=== PATIENT | male | born 1945 | race Caucasian/White ===

== ENCOUNTER 2024-04-14 09:41 | Emergency (ER) | payer OTHER, SELFPAY ==
[2024-04-14 09:46] VITALS: BP 154/100
--- NOTE | 2024-04-14 10:38 | EDRN ---
Pt has wandered up to desk twice asking about how long wait is. Pt reassured and returned to WR.
[2024-04-14 11:29] LABS: % Basophils 0.5 % (0-2); % Eosinophils 0.3 % (0-6); % Immature Granulocytes 0.3 % (0-0.5); % Lymphocytes 20.3 % (20.5-51.1); % Neutrophils 70.6 % (42.2-75.2); Absolute Lymphocytes 1.2 10^3/uL (1.2-3.4); Absolute Monocytes 0.5 10^3/uL (0.1-0.6); Absolute Neutrophils 4.1 10^3/uL (1.4-6.5); Hemoglobin 15.8 g/dL (13.0-18.0); Mean Corp Hgb Conc. 35.9 g/dL (33.0-37.0); Mean Corpuscular Hgb 33.7 pg (27.0-31.0); Mean Corpuscular Volume 93.8 fL (80.0-94.0); Mean Platelet Volume 9.3 fL (7.4-10.4); Nucleated Red Blood Cells % 0 % (-); Platelet Count 249 10^3/uL (130-400); Red Blood Cell Count 4.69 10^6/uL (4.70-6.10); Red Cell Dist. Width 12.3 % (11.5-14.5); White Blood Cell Count 5.8 10^3/uL (4.8-10.8)
[2024-04-14 11:46] LABS: ALT (SGPT) 16 U/L (0-50); AST (SGOT) 25 U/L (17-59); Albumin 4.7 g/dl (3.5-5.0); Alkaline Phosphatase 73 U/L (38-126); Blood Urea Nitrogen 13 mg/dl (9-20); Calcium 9.5 mg/dl (8.4-10.2); Carbon Dioxide 22 mmol/L (22-30); Chloride 104 mmol/L (98-107); Glucose 106 mg/dl (70-99); Potassium 4.4 mmol/L (3.5-5.1); Sodium 137 mmol/L (135-145); Total Bilirubin 1.3 mg/dl (0.2-1.3); Total Protein 7.3 g/dl (6.3-8.2); eGFR > 60.00
[2024-04-14 12:17] VITALS: BMI 22.0
[2024-04-14 12:30] VITALS: BP 178/100
[2024-04-14 13:26] LABS: Urine Albumin Trace (Neg - Trace); Urine Bilirubin Negative (Negative); Urine Character Clear (Clear); Urine Color Yellow; Urine Glucose Negative (Negative); Urine Ketone 2+ (Negative); Urine Leukocyte Negative (Negative); Urine Nitrite Negative (Negative); Urine Occult Blood Negative (Negative); Urine Urobilinogen 1+ (Neg - 1+)
[2024-04-14 14:20] VITALS: BP 169/81
--- NOTE | 2024-04-14 17:12 | ED.GENMED ---
History of Present Illness
General
Chief Complaint: Bowel Problem
Source: patient and family
Exam Limitations: dementia
Time Seen by Provider: 04/14/24 12:03
Nursing documentation reviewed up to this point in time: agreed with
History of Present Illness
History of Present Illness:
78 y/o M from home
dementia, doesn't see doctors regularly and really bad about taking meds
he fell on xmas and had coccyx pain; has been able to walk and has no weakness in his legs; but then developed some constipation and urinary retention; keeps trying to move bowels and urinate and we aren't really sure how much he puts out because
family isn' really watching him that close and he has dementia
but they are aware that at least since yesterday he has said he keeps trying to urinate and tells his family he can't
he has no abdominal pain, vomiting
he has javi a little rectal pain beause of a hemorrhoid he is aware of
he doesn't fever/chills
no h/o prostate enlargement that they nkow of
but he is very difficult to get to go tot he doctor or take mediation due to his dementia
Past History
Past History
ED Past Medical History: HTN and Other (dementia, depresion, )
ED Past Surgical History: Appendectomy and Tonsilectomy
Social History
Tobacco: Non-smoker
Alcohol: None
Drug: None
Personal:
Living: with family
Review of Systems
Review of Systems
Allergies reviewed?: Yes
All Other Systems: Not applicable
Phy Exam
Physical Exam
Physical Exam:
GENERAL: Alert , in no apparent distress
EYE: pupils equal and reactive
NECK: Supple
ENT: o/p clr, mmm.
CARDIAC: Regular rate and rhythm .
LUNGS: Clear breath sounds bilaterally, no acute respiratory distress, no wheezes/rales/rhonchi
ABDOMEN: Soft, without focal tenderness, no r/g, no cvat, normal bowel sounds
nontender
nonbleeding nonthrombosed nontender external hemorrhoid
no fecal ipmaction
BLADDER SCAN 250 ML
NEUROLOGICAL: Alert and oriented x 2; no focal neuro deficits
SKIN: Warm and dry, skin intact.
MUSCULOSKELETAL: No edema, well perfused. neg rayshawn's sign
PSYCH: Normal and appropriate interaction. agitation at times, dementia
Course
Orders/Labs/Results
Orders:
Orders
04/14/24 11:11
Complete Blood Count/With Diff Urgent
Comprehensive Metabolic Panel Urgent
04/14/24 12:31
Argueta Placement- Treatment ONCE
Reason for insertion: Acute Retention
04/14/24 12:41
Urinalysis Reflex To Culture Urgent
Date Specimen was Collected: 04/14/24
Time Specimen was Collected: 10:54
04/14/24 13:35
CT Abd/pel Without Iv Or Oral Urgent
Comment:
Reason For Exam: constipation, urinary retentin
Abnormal Lab Results
04/14/24 04/14/24
11:11 12:41
RBC 4.69 L 10^6/uL
(4.70-6.10)
MCH 33.7 H pg
(27.0-31.0)
Lymphocytes % 20.3 L %
(20.5-51.1)
Glucose 106 H mg/dl
(70-99)
Urine Ketones 2+ A
(Negative)
04/14/24 11:11
04/14/24 11:11
Vital Signs
Initial and Last Documented VS:
Initial Vital Signs
Temp Pulse Resp BP Pulse Ox
36.6 C 76 16 154/100 98
04/14/24 09:46 04/14/24 09:46 04/14/24 09:46 04/14/24 09:46 04/14/24 09:46
Last Documented Vital Signs
Temp Pulse Resp BP Pulse Ox
36.6 C 67 18 169/81 98
04/14/24 09:46 04/14/24 14:20 04/14/24 14:20 04/14/24 14:20 04/14/24 14:20
MDM/Problems Addressed
MDM/Problems Addressed:
constipation vs. urinary frequency/retention/uti sxs;
dementia, making history difficult.
on exam normal signs, comfortable, no back tenderness, normal NV exam; no fecal impaction, no prostate tenderness; he had bladder scan of > 250 so we put in a argueta since he was unable to urinate twice here; originally i just wanted a straight cath
and then see how much was really in there;
he put out about 200 ml
he was in such distress with the catheter in, trying to pull it out; so we pulled it; the ua is ketones only, no infection
and cr is normal
i did a noncon scan and his prostate is enlarged and bulging into the bladder base and his bladder looks like maybe circumferential wall thikcening;
stool in colon as well
so maybe the constipation is worsening things; will start miralax for constipation; his UA doesn't look infected,making abx not indicated;
i spkoe with dr. ramos for urology who recommended flomax
f/u outpatien
t
family warned that he couuld go back into retention and require argueta
pt was already getting dressed to leave after the CT scan.
*Critical Care Note
Total Time (30-74mins, 75-104mins- exclusive of procedures): Not Applicable
ED Attending Note
-
Portions of this chart may have been created with voice recognition software.� Occasional wrong word or��sound alike� substitutions may have occurred due to the inherent limitations of voice recognition software.
Discharge Plan
Departure
Patient Disposition: Home (Routine Discharge)
Date of Disposition: 04/14/24
Time of Disposition: 15:05
Patient with high blood pressure during this ER visit?: Yes
Condition: Fair
Discharge Problem:
Enlarged prostate
Instructions: Constipation, Adult (DC), Urinary retention - Discharge instructions
Prescriptions:
New
tamsulosin [Flomax] 0.4 mg capsule
0.4 mg PO DAILY Qty: 30 0RF
Referrals:
Paolo Monsalve MD [Family Provider] -
Nathan Ramos Jr., MD [Active] - Follow up in 5-7 days
Activity Restrictions/Additional Instructions:
His symptoms are probably a combination of things, like being moderately constipated as well as having an enlarged prostate.
The urologist recommended that we start Flomax once a day to help him pee. Does not look like he has a bladder infection. He did have some degree of urinary retention which could be worsened by constipation. Try MiraLAX twice a day for 2 to 3
days to help him poop.
He could go into worsening urinary retention and require a Argueta catheter but he did not tolerate 1 here. So watch for worsening symptoms like inability to urinate at all, significant pain, fevers or chills, etc. and return immediately for that.
Otherwise
Try the MiraLAX, try giving him the Flomax and following up with urologist
Interventions
Interventions:
*Risk Screen - Suicide Last Done: 04/14/24 09:46
*General Assessment Last Done: 04/14/24 12:17
*Neglect/Abuse Screening Last Done: 04/14/24 09:46
ED- Fall Risk Assessment Last Done: 04/14/24 12:17
*ED COVID-19 Vaccine History Last Done: 04/14/24 12:17
*Nursing Disposition Last Done: 04/14/24 15:10
YS-Xsdwlg-Hhwkmedjrc Assessment Last Done: 04/14/24 12:17
ED-Musculoskeletal Assessment Last Done: 04/14/24 12:17
Discharge Date and Time
Discharge Date/Time: 04/14/24 15:19
Print Language: SENEGALESE
== END 2024-04-14 15:19 | disposition home or self-care (01) ==
LOC: EMR 09:41
PROVIDERS: Emergency Medicine; EMERGENCY PHYSICIAN Emergency Medicine; FAMILY PHYSICIAN Internal Medicine
DX: N40.1 Benign prostatic hyperplasia with lower urinary tract symptoms (principal); R33.8 Other retention of urine; K64.4 Residual hemorrhoidal skin tags; K59.00 Constipation, unspecified; K62.89 Other specified diseases of anus and rectum; W19.XXXA Unspecified fall, initial encounter; F03.90 Unspecified dementia, unspecified severity, without behavioral disturbance, psychotic disturbance, mood disturbance, and anxiety; I10 Essential (primary) hypertension; F32.A Depression, unspecified; R56.9 Unspecified convulsions
CPT/HCPCS: 99284; 51702; 51798; 74176; 80053; 81003; 85025